=== PATIENT | male | born 1950 | race Caucasian/White ===

== ENCOUNTER → 2017-07-24 | Outpatient (CLI) | payer OTHER ==
[~2017-07-24] MED LIST: Bactrim,Septra DS 80 PO; DOCUSATE SODIU100 MG PO; FIORICET 50-301 EACH PO; LEVOTHYROXINE75 MCG PO; Levothroid,Synthroid PO; POLYETHYLENE GL17 GM PO; Percocet 5/325,Endoc PO; Proventil,Ventolin H IH; SPIRIVA1 INHALATI IH; VENTOLIN HFA18 GM IH; VITAMIN D-32000 UNI2 PO; Vitamin D PO
== END | disposition home or self-care (01) ==
DX: R13.13 Dysphagia, pharyngeal phase (principal); R13.11 Dysphagia, oral phase; R05 Cough; R09.89 Other specified symptoms and signs involving the circulatory and respiratory systems
CPT/HCPCS: 92611 GN; G8996 GN; G8997 GN; G8998 GN